=== PATIENT | male | born 1960 | race Caucasian/White ===

== ENCOUNTER → 2022-02-01 | Day surgery (SDC) | payer OTHER ==
[~2022-02-01] VITALS: Ht 180.3 cm; Wt 88.9 kg
[~2022-02-01] MED LIST: ALLEGRA ALLERG180 MG PO; AMIODARONE HCL200 M1 PO; ELIQUIS5 MG PO; METOPROLOL SUCC25 MG PO; OMEPRAZOLE40 MG PO; PROCTO-MED HC28 GM PR; SIMVASTATIN40 MG PO
[2022-02-01 11:40] LABS: HCT 39.3 % (42.0-52.0); HGB 12.7 g/dl (13.2-18.0); MCH 28.4 pg (25.0-31.0); MCHC 32.3 g/dL (32.0-36.0); MCV 87.9 fL (78.0-100.0); MPV 10.9 fL (6.0-9.5); RBC 4.47 M/uL (4.70-6.00); WBC 5.1 K/uL (4.0-10.5)
[2022-02-01 11:59] LABS: INR 1.13 (0.9-1.2); PROTHROMBIN TIME 14.2 SECONDS (11.9-13.9); PTT 28.1 SECONDS (24.9-34.6)
[2022-02-01 12:34] LABS: ALBUMIN 4.1 g/dL (3.4-5.0); BILIRUBIN - TOTAL 0.6 mg/dL (0.2-1.0); BUN/CREAT RATIO (CALC) 13.7 RATIO; CREATININE 1.02 mg/dL (0.67-1.17); GLOBULIN (CALCULATION) 2.9 g/dL
== END | disposition home or self-care (01) ==
LOC: FAS 10:45
PROVIDERS: Surgery
DX: K92.1 Melena (principal); K29.50 Unspecified chronic gastritis without bleeding; K44.9 Diaphragmatic hernia without obstruction or gangrene; K57.30 Diverticulosis of large intestine without perforation or abscess without bleeding; K64.8 Other hemorrhoids; K21.9 Gastro-esophageal reflux disease without esophagitis; E78.5 Hyperlipidemia, unspecified; Z72.89 Other problems related to lifestyle; Z79.01 Long term (current) use of anticoagulants; Z72.0 Tobacco use
CPT/HCPCS: 36415; 80053; 85610; 85730; J2250; J2704; J7120